=== PATIENT | female | born 1950 | race Caucasian/White ===

== ENCOUNTER 2020-09-20 16:57 | Emergency (ER) | payer MEDICARE, BC ==
[~2020-09-20] VITALS: Ht 170.2 cm; Wt 79.4 kg
[2020-09-20] MEDS ORDERED: ACYCLOVIR 400400 MG PO (17:03)
[2020-09-20] MEDS ORDERED: PREDNISONE 20 M20 MG PO ×2 (18:07→18:08)
[2020-09-20 18:30] VITALS: BP 103/68
== END 2020-09-20 18:30 | disposition home or self-care (01) ==
LOC: M.ERS 16:57
DX: U07.1 COVID-19 (principal); J12.82 Pneumonia due to coronavirus disease 2019